=== PATIENT | female | born 1990 | race African-American/Black ===

== ENCOUNTER 2016-05-27 17:40 | Emergency (ER) | payer OTHER ==
[~2016-05-27] VITALS: Ht 165.1 cm; Wt 63.5 kg
[~2016-05-27 17:40] MED LIST: ALBUTEROL SULF8.5 GM INH; ALBUTEROL2.5 MG/3 M HHN; ALBUTEROL2.5 MG/3 M INH; BACTRIM DS TAB1 EAC1 ORAL; CIPROFLOXACIN500 M2 ORAL; IBUPROFEN600 MG ORAL; KEFLEX500 MG ORAL; LEVAQUIN500 MG ORAL; NAPROXEN375 M2 ORAL; NORCO 5-325 TA1 EACH ORAL; PHENAZOPYRIDIN200 MG ORAL; PHENERGAN6.25 MG/5 ORAL; ZOFRAN4 MG ORAL
[2016-05-27 18:05] VITALS: BP 107/69
[2016-05-27] MEDS ORDERED: ALBUTEROL SULF8.5 GM INH (18:10)
[2016-05-27] MEDS ORDERED: AZITHROMYCIN250 MG ORAL (18:10)
[2016-05-27 18:32] VITALS: BP 107/69
--- NOTE | 2016-05-29 02:02 | Emergency Room Report ---
History of Present Illness General Chief Complaint: Upper Respiratory Illness Source: Patient Present Illness HPI Patient's as with complaint of sore throat and cough over the past 3 days She reports that her son was sick initially and she thinks she caught the same cold She has a history of asthma and felt that there was some mild wheezing Sore throat is 3/10 pain sharp Denies any posterior neck pain denies any chest pain Denies any back or flank pain Denies any recent travel Allergies: Coded Allergies: No Known Allergies (Unverified , 02/17/14) Patient History Past Medical History: see triage record Pertinent Family History: none Last Menstrual Period: Current Now: No Reviewed Nursing Documentation: PMH: Agreed, PSxH: Agreed Nursing Documentation-PMH Hx Asthma: Yes Review of Systems All Other Systems: negative except mentioned in HPI Physical Exam Vital Signs Date Time Temp Pulse Resp B/P Pulse Ox O2 Delivery O2 Flow Rate FiO2 05/27/16 17:55 98.8 82 16 107/69 99 Room Air Sp02 EP Interpretation: reviewed, normal General Appearance: well appearing, no apparent distress Head: normocephalic, atraumatic Eyes: bilateral eye EOMI, bilateral eye PERRL ENT: hearing grossly normal, normal pharynx, TMs + canals normal, uvula midline Neck: full range of motion, supple, no meningismus, no bony tend Respiratory: lungs clear, normal breath sounds, no rhonchi, no respiratory distress, no retraction, no accessory muscle use Cardiovascular #1: normal peripheral pulses, regular rate, rhythm, no edema, no gallop, no JVD, no murmur Gastrointestinal: normal bowel sounds, non tender, soft, no mass, no organomegaly, non-distended, no guarding, no hernia, no pulsatile mass, no rebound Genitourinary: no CVA tenderness Musculoskeletal: normal inspection Neurologic: oriented x3, responsive, streetcar dispatcher 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-XII nml as tested, motor strength/ tone normal, sensory intact Psychiatric: mood/affect normal Skin: normal color, no rash, warm/dry, palpation normal Lymphatic: normal inspection, no adenopathy Medical Decision Making Diagnostic Impression: Primary Impression: bronchitis ER Course Given the patient's history and exam multiple differentials are considered It appears the patient has findings in line with a viral bronchitis the patient was provided with an inhaler and stable for close outpatient followup Last Vital Signs Date Time Temp Pulse Resp B/P Pulse Ox O2 Delivery O2 Flow Rate FiO2 05/27/16 18:32 98.8 16 107/69 99 Room Air 05/27/16 18:05 82 Status: unchanged Disposition: HOME, SELF-CARE Condition: Stable Scripts Albuterol Sulfate* (ALBUTEROL SULFATE MDI*) 8.5 Gm Hfa.aer.ad 2 PUFF INH Q6H, #1 EA 0 Refills Prov: ANA MARIA WEIR D.O. 05/27/16 Ref[facility] ([facility]P) Patient Instructions: Acute Bronchitis, [id number]-[id number] Additional Instructions: Patient is provided with the discharge instructions notified to follow up with primary doctor in the next 2-3 days otherwise return to the er with any worsening symptoms. Please note that this report is being documented using [employer] technology. This can lead to erroneous entry secondary to incorrect interpretation by the dictating instrument. ANA MARIA WEIR D.O. May 29, 2016 02:02
== END 2016-05-27 18:32 | disposition home or self-care (01) ==
LOC: EMR 18:00
DX: J40 Bronchitis, not specified as acute or chronic (principal); J45.909 Unspecified asthma, uncomplicated
CPT/HCPCS: 99283

== ENCOUNTER 2016-09-08 11:46 | Emergency (ER) | payer OTHER ==
[~2016-09-08] VITALS: Ht 165.1 cm; Wt 59.0 kg
[~2016-09-08 11:46] MED LIST changes: +AZITHROMYCIN250 MG ORAL
[2016-09-08 12:02] VITALS: BP 110/73
[2016-09-08] MEDS ORDERED: Morphine Sulfate 4mg/ml Inj IVP ONE (12:15)
[2016-09-08] MEDS ORDERED: Morphine Sulfate 4mg/ml Inj IM ONE (12:15)
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
[2016-09-08] MEDS ORDERED: Ondansetron ODT 8mg tab ORAL ONE (12:30)
[2016-09-08] MEDS ORDERED: Ketorolac 30mg Inj IM ONE (13:00)
[2016-09-08] MEDS ORDERED: NAPROXEN500 M2 ORAL (13:29)
[2016-09-08] MEDS ORDERED: ACETAMINOPHEN-1 EAC2 ORAL (13:29)
[2016-09-08 13:40] VITALS: BP 116/71
[2016-09-08 13:50] VITALS: BP 116/71
--- NOTE | 2016-09-10 11:45 | Diagnostic Imaging Report ---
Indication: PAIN Technique: 3 views of the right elbow Comparison: none Findings: No acute fractures. No dislocations. No joint effusion. Joint spaces are preserved. Normal mineralization. No radiopaque foreign body. Impression: Negative This agrees with the preliminary interpretation provided by the emergency room physician
--- NOTE | 2016-09-10 11:45 | Diagnostic Imaging Report ---
Clinical Indication:PAIN Technique: 3 views of the right wrist Comparison: None Findings: No acute fractures. No dislocations. Joint spaces are preserved. Impression: Negative This agrees with the preliminary interpretation provided by the emergency room physician
--- NOTE | 2016-09-10 11:45 | Diagnostic Imaging Report ---
Indications: PAIN Technique: Two views of the forearm Comparison: None Findings: No acute fractures or dislocations. No radiopaque foreign body. Normal mineralization. Impression: Negative This agrees with the preliminary interpretation provided by the emergency room physician
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
== END 2016-09-08 13:52 | disposition home or self-care (01) ==
LOC: EMR 12:10
DX: S06.0X9A Concussion with loss of consciousness of unspecified duration, initial encounter (principal); S09.90XA Unspecified injury of head, initial encounter; M25.531 Pain in right wrist; M25.521 Pain in right elbow; S00.83XA Contusion of other part of head, initial encounter; Y04.2XXA Assault by strike against or bumped into by another person, initial encounter; Y92.009 Unspecified place in unspecified non-institutional (private) residence as the place of occurrence of the external cause; J32.2 Chronic ethmoidal sinusitis
CPT/HCPCS: 70450; 73080; 73090; 73110; 96372; 99284; J1885; J2270

== ENCOUNTER 2017-01-20 17:47 | Emergency (ER) | payer OTHER ==
[~2017-01-20] VITALS: Ht 165.1 cm; Wt 65.3 kg
[~2017-01-20 17:47] MED LIST changes: +ACETAMINOPHEN-1 EAC2 ORAL; +NAPROXEN500 M2 ORAL
[2017-01-20 18:25] VITALS: BP 111/64
[2017-01-20] MEDS ORDERED: Methocarbamol 750mg tab ORAL ONE (18:45)
[2017-01-20] MEDS ORDERED: IBUPROFEN600 MG ORAL (19:55)
[2017-01-20] MEDS ORDERED: ROBAXIN-750750 MG PO (19:55)
[2017-01-20 20:00] VITALS: BP 111/64
--- NOTE | 2017-01-21 10:44 | Diagnostic Imaging Report ---
Indication: PAIN Technique: 3 views of the right knee Comparison: None Findings:No suprapatellar effusion, fracture, dislocation, or joint space narrowing demonstrated Impression:Negative
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
== END 2017-01-20 20:00 | disposition home or self-care (01) ==
LOC: EMR 18:39
DX: M25.461 Effusion, right knee (principal); J45.909 Unspecified asthma, uncomplicated; T14.8XXA Other injury of unspecified body region, initial encounter; V43.52XA Car driver injured in collision with other type car in traffic accident, initial encounter; Y92.410 Unspecified street and highway as the place of occurrence of the external cause
CPT/HCPCS: 99284

== ENCOUNTER 2017-11-12 11:03 | Emergency (ER) | payer OTHER ==
[~2017-11-12] VITALS: Ht 165.1 cm; Wt 65.3 kg
[~2017-11-12 11:03] MED LIST changes: +ROBAXIN-750750 MG PO
--- NOTE | 2017-11-12 13:16 | Emergency Room Report ---
History of Present Illness General Chief Complaint: General Complaint Source: Patient Present Illness HPI 27-year-old female presents to the emergency department complaining of 2 weeks of decreased appetite with onset of bloating in the lower abdomen 3 days. Patient denies nausea or vomiting she denies fevers or chills she reports she took an at-home test which was negative she states her last period was the first of this month. She has had one previous . She reports normal bowel movements she does report increased urinary frequency. Patient does also reports some low right-sided back aches that she rates as 4 out of 10 in severity. She reports that her lower abdomen area feels slightly distended. Allergies: Coded Allergies: No Known Allergies (Unverified , 02/17/14) Patient History Past Medical History: see triage record Past Surgical History: none Pertinent Family History: none Last Menstrual Period: 10/29/2017 Now: No Immunizations: UTD Reviewed Nursing Documentation: PMH: Agreed; PSxH: Agreed Nursing Documentation-PMH Past Medical History: No History, Except For Hx Asthma: Yes Review of Systems All Other Systems: negative except mentioned in HPI Physical Exam Vital Signs Date Time Temp Pulse Resp B/P (MAP) Pulse Ox O2 Delivery O2 Flow Rate FiO2 11/12/17 11:08 98.3 93 16 116/83 98 Room Air 98.2 Sp02 EP Interpretation: reviewed, normal General Appearance: no apparent distress, alert, GCS 15, non-toxic Head: normocephalic, atraumatic Eyes: bilateral eye normal inspection, bilateral eye PERRL ENT: hearing grossly normal, normal voice Neck: full range of motion Respiratory: lungs clear, normal breath sounds, speaking full sentences Cardiovascular #1: regular rate, rhythm Gastrointestinal: normal bowel sounds, non tender, soft, non-distended, no guarding Rectal: deferred Genitourinary: normal inspection, no CVA tenderness Musculoskeletal: back normal, gait/station normal, normal range of motion, non- tender Neurologic: alert, oriented x3, responsive, motor strength/tone normal, sensory intact, normal gait, speech normal, grossly normal Psychiatric: judgement/insight normal Skin: normal color, no rash, warm/dry, well hydrated Medical Decision Making PA Attestation Dr. Ramirez is my supervising Physician whom patient management has been discussed with. Diagnostic Impression: Primary Impression: UTI (urinary tract infection) Qualified Codes: N30.01 - Acute cystitis with hematuria ER Course 27-year-old female presents to the emergency department complaining of 2 weeks of decreased appetite with onset of bloating in the lower abdomen 3 days. Patient denies nausea or vomiting she denies fevers or chills she reports she took an at-home test which was negative she states her last period was the first of this month. She has had one previous . She reports normal bowel movements she does report increased urinary frequency. Patient does also reports some low right-sided back aches that she rates as 4 out of 10 in severity. She reports that her lower abdomen area feels slightly distended. Ddx considered but are not limited to UTi , Pyelo, STI, Stone, Cystitis, , Vital signs: are WNL, pt. is afebrile H&PE are most consistent with UTI ORDERS: - UA labs are attached : Positive for UTI -Hcg: Negative ED INTERVENTIONS: -Pyridium PO DISCHARGE: At this time pt. is stable for d/c to home. Will provide printed patient care instructions, and any necessary prescriptions. Care plan and follow up instructions have been discussed with the patient prior to discharge. Labs Test 11/12/17 12:25 Urine Color Pale yellow Urine Appearance Turbid Urine pH 7 (4.5-8.0) Urine Specific Noel 1.005 (1.005-1.035) Urine Protein 3+ (NEGATIVE) Urine Glucose (UA) Negative (NEGATIVE) Urine Ketones 3+ (NEGATIVE) Urine Occult Blood 5+ (NEGATIVE) Urine Nitrite Negative (NEGATIVE) Urine Bilirubin Negative (NEGATIVE) Urine Urobilinogen Normal MG/DL (0.0-1.0) Urine Leukocyte Esterase 3+ (NEGATIVE) Urine RBC 60-80 /HPF (0 - 2) Urine WBC Tntc /HPF (0 - 2) Urine Squamous Epithelial Cells Few /LPF (NONE/OCC) Urine Bacteria Moderate /HPF (NONE) Urine HCG, Qualitative Negative (NEGATIVE) Last Vital Signs Date Time Temp Pulse Resp B/P (MAP) Pulse Ox O2 Delivery O2 Flow Rate FiO2 11/12/17 11:08 98.3 93 16 116/83 98 Room Air 98.2 Disposition: HOME, SELF-CARE Condition: Stable Scripts Phenazopyridine Hcl* (PYRIDIUM*) 200 Mg Tablet 200 MG ORAL THREE TIMES A DAY for 3 Days, #9 TAB 0 Refills Prov: Phyllis Tony 11/12/17 Trimethoprim/Sulfamethoxazole 160/800* (BACTRIM DS TABLET*) 1 Each Tablet 1 TAB ORAL TWICE A DAY for 7 Days, #14 TAB Prov: Phyllis Tony 11/12/17 Referrals: [facility] (PCP) Patient Instructions: Urinary Tract Infection Additional Instructions: Take medications as directed. Follow up with a Primary Care Provider in 3-5 days, even if your symptoms have resolved. --Please review list of primary care clinics, if you do not already have a primary care provider Return sooner to ED if new symptoms occur, or current symptoms become worse. Do not drink alcohol, drive, or operate heavy machinery while taking [ ] as this may cause drowsiness. - Please note that this Emergency Department Report was dictated using [employer] technology software, occasionally this can lead to erroneous entry secondary to interpretation by the dictation equipment. Phyllis Tony Nov 12, 2017 13:16
[2017-11-12 13:19] LABS: APPEARANCE,URINE TURBID; BILIRUBIN, URINE NEGATIVE (NEGATIVE); COLOR,URINE PALE YELLOW; GLUCOSE, URINE (UA) NEGATIVE (NEGATIVE); KETONES,URINE 3+ (NEGATIVE); LEUKOCYTE ESTERASE ,URINE 3+ (NEGATIVE); NITRITE,URINE NEGATIVE (NEGATIVE); PH,URINE 7 (4.5-8.0); PROTEIN,URINE 3+ (NEGATIVE); UROBILINOGEN,URINE NORMAL MG/DL (0.0-1.0)
[2017-11-12 13:35] VITALS: BP 122/78
[2017-11-12] MEDS ORDERED: PHENAZOPYRIDIN200 MG ORAL (13:43)
[2017-11-12] MEDS ORDERED: BACTRIM DS TAB1 EAC1 ORAL (13:43)
[2017-11-12] MEDS ORDERED: Phenazopyridine 200mg tab ORAL ONE (13:45)
== END 2017-11-12 13:35 | disposition home or self-care (01) ==
LOC: EMR 11:57
DX: N30.01 Acute cystitis with hematuria (principal); J45.909 Unspecified asthma, uncomplicated
CPT/HCPCS: 81003; 81025; 87086; 87181; 99283

== ENCOUNTER 2018-02-22 00:50 | Emergency (ER) | payer OTHER ==
[~2018-02-22] VITALS: Ht 165.1 cm; Wt 59.0 kg
[~2018-02-22 00:50] MED LIST changes: +CEPHALEXIN500 MG ORAL; +LIDODERM700 M1 TOPIC; +TYLENOL EXTRA500 MG ORAL
[2018-02-22 01:16] VITALS: BP 124/72
[2018-02-22] MEDS ORDERED: Ipratropium 0.02% Inh Soln 2.5ml UD HHN ONE (01:30)
[2018-02-22] MEDS ORDERED: Albuterol ud Inhalation HHN ONE (01:30)
[2018-02-22 01:32] LABS: APPEARANCE,URINE SLIGHTLY CLOUDY; BILIRUBIN, URINE NEGATIVE (NEGATIVE); COLOR,URINE PALE YELLOW; GLUCOSE, URINE (UA) NEGATIVE (NEGATIVE); KETONES,URINE NEGATIVE (NEGATIVE); LEUKOCYTE ESTERASE ,URINE 1+ (NEGATIVE); NITRITE,URINE NEGATIVE (NEGATIVE); PH,URINE 7 (4.5-8.0); PROTEIN,URINE NEGATIVE (NEGATIVE); UROBILINOGEN,URINE 1 MG/DL (0.0-1.0)
[2018-02-22 02:26] VITALS: BP 121/84
[2018-02-22] MEDS ORDERED: oxyCODONE HCL/Acetaminophen 5/325mg ORAL ONE (02:45)
[2018-02-22 03:10] VITALS: BP 117/81
--- NOTE | 2018-02-22 04:37 | Emergency Room Report ---
History of Present Illness General Chief Complaint: Asthma Source: Patient Present Illness HPI Patient presents with several days of wheezing and productive cough. She has yellow phlegm at this time. In addition she has a headache from the coughing and a sore throat. The throat has been red in color. She's been able to swallow liquids. She's run out of her albuterol inhaler. She has used prednisone in the past. This is not her worst attack. Not . Seen in past with lumbar pain, denies at this time. No dysuria. No NVD, rashes, anxiety, joint pain, calf pain or swelling. Allergies: Coded Allergies: No Known Allergies (Unverified , 02/17/14) Patient History Past Medical History: see triage record Social History: Denies: smoking Social History Narrative off from work Now: No Reviewed Nursing Documentation: PMH: Agreed; PSxH: Agreed Nursing Documentation-PMH Hx Asthma: Yes Review of Systems All Other Systems: negative except mentioned in HPI Physical Exam Vital Signs Date Time Temp Pulse Resp B/P (MAP) Pulse Ox O2 Delivery O2 Flow Rate FiO2 02/22/18 01:09 99.0 92 22 120/80 97 Room Air 02/22/18 01:38 21 Sp02 EP Interpretation: reviewed, normal General Appearance: well appearing, no apparent distress, GCS 15 Head: normocephalic Eyes: bilateral eye normal inspection, bilateral eye PERRL ENT: moist mucus membranes, pharyngeal erythema Neck: supple Respiratory: chest non-tender, wheezing, expiration Cardiovascular #1: regular rate, rhythm Cardiovascular #2: 2+ radial (R) Gastrointestinal: normal inspection, normal bowel sounds, non tender, no mass, non-distended Genitourinary: no CVA tenderness Musculoskeletal: back normal, gait/station normal, normal range of motion Neurologic: alert, oriented x3, grossly normal Psychiatric: mood/affect normal Skin: normal inspection, warm/dry Medical Decision Making Diagnostic Impression: Primary Impression: Asthma exacerbation Qualified Codes: J45.41 - Moderate persistent asthma with (acute) exacerbation Additional Impression: Strep pharyngitis ER Course Patient presents with wheezing and sore throat. DDX; asthma, strep, viral amongst others. Breathing treatments and prednisone indicated. Also will receive analgesia. CXR not indicated (unless not improved). Antibiotics indicated for pharyngitis. After tx, lungs better, but c/o headache. Percocet ordered. Non-focal neuro. Patient improved with treatment. Patient stable for outpatient observation and treatment. Laboratory Tests Test 02/22/18 01:05 Urine Color Pale yellow Urine Appearance Slightly cloudy Urine pH 7 (4.5-8.0) Urine Specific [place] 1.015 (1.005-1.035) Urine Protein Negative (NEGATIVE) Urine Glucose (UA) Negative (NEGATIVE) Urine Ketones Negative (NEGATIVE) Urine Blood Negative (NEGATIVE) Urine Nitrite Negative (NEGATIVE) Urine Bilirubin Negative (NEGATIVE) Urine Urobilinogen 1 MG/DL (0.0-1.0) H Urine Leukocyte Esterase 1+ (NEGATIVE) H Urine RBC 0-2 /HPF (0 - 2) Urine WBC 2-4 /HPF (0 - 2) Urine Squamous Epithelial Cells Moderate /LPF (NONE/OCC) H Urine Bacteria Few /HPF (NONE) Urine HCG, Qualitative Negative (NEGATIVE) Rhythm Strip Diag. Results EP Interpretation: yes Rhythm: NSR, no PVC's, no ectopy Last Vital Signs Date Time Temp Pulse Resp B/P (MAP) Pulse Ox O2 Delivery O2 Flow Rate FiO2 02/22/18 05:00 98.7 63 22 110/49 100 Room Air 02/22/18 01:59 21 Status: improved Disposition: HOME, SELF-CARE Condition: Improved Scripts Albuterol Sulfate* (ALBUTEROL SULFATE MDI*) 8.5 Gm Hfa.aer.ad 2 PUFF INH Q6H, #1 EA 1 Refill Prov: Robert Frazier MD 02/22/18 Guaifenesin/Codeine Phos* (ROBITUSSIN AC*) 118 Ml Liquid 5 ML ORAL Q6H PRN for For Cough, #90 ML 0 Refills Prov: Robert Frazier MD 02/22/18 Amoxicillin/Potassium Clav 500-125 Tablet* (AUGMENTIN 500-125 TABLET*) 1 Each Tablet 1 TAB ORAL THREE TIMES A DAY, #20 TAB Prov: Robert Frazier MD 02/22/18 Referrals: [facility],REFERRING (PCP) Robert Frazier MD Feb 22, 2018 04:37
[2018-02-22] MEDS ORDERED: AUGMENTIN 500-1 EACH ORAL (04:40)
[2018-02-22] MEDS ORDERED: ALBUTEROL SULF8.5 GM INH (04:41)
[2018-02-22] MEDS ORDERED: GUAIFENESIN-CO118 M1 ORAL (04:41)
[2018-02-22 05:00] VITALS: BP 110/49
== END 2018-02-22 05:01 | disposition home or self-care (01) ==
LOC: EMR 01:56
DX: J45.41 Moderate persistent asthma with (acute) exacerbation (principal); J02.0 Streptococcal pharyngitis; B95.5 Unspecified streptococcus as the cause of diseases classified elsewhere
CPT/HCPCS: 81003; 81025; 94640; 94664; 99284; J7512

== ENCOUNTER 2018-04-19 10:08 | Emergency (ER) | payer OTHER ==
[~2018-04-19] VITALS: Ht 165.1 cm; Wt 66.7 kg
[~2018-04-19 10:08] MED LIST changes: +AUGMENTIN 500-1 EACH ORAL; +GUAIFENESIN-CO118 M1 ORAL
--- NOTE | 2018-04-19 10:19 | NUR ---
ED Nurse Note: Pt came into the Er w/ complaints of SOB and frequency upon urination x 4 days. Denies burning upon urination. Pt ran out of inhaler medication yesterday. Complaining of 5/10 headache. Non radiating. A + O x4. Ambulatory. Skin warm to touch. Noted to have a marijuana smell coming form pt.
[2018-04-19 10:20] VITALS: BP 100/64
--- NOTE | 2018-04-19 10:28 | Emergency Room Report ---
History of Present Illness General Chief Complaint: Asthma Source: Patient Present Illness HPI Patient has a history of asthma. Patient presents emergency department today complaining of one week of worsening shortness of breath. Patient has been using albuterol pump but symptoms have not improved. Patient has run out of her inhaler. In addition patient complains of dysuria urinary frequency. Symptoms have also been on for a week with some mild right flank pain. Patient denies any vaginal discharge. Denies any fever chest pain. Denies any leg pain leg swelling. Symptoms noted to be moderate.No other modifying factors. No other associated signs and symptoms. No other complaints were noted. Allergies: Coded Allergies: No Known Allergies (Unverified , 02/17/14) Patient History Past Medical History: asthma Past Surgical History: none Pertinent Family History: none Social History: Denies: smoking, alcohol use, drug use Last Menstrual Period: 2 WEEKS AGO Now: No Reviewed Nursing Documentation: PMH: Agreed; PSxH: Agreed Nursing Documentation-PMH Hx Asthma: Yes Review of Systems All Other Systems: negative except mentioned in HPI Physical Exam Vital Signs Date Time Temp Pulse Resp B/P (MAP) Pulse Ox O2 Delivery O2 Flow Rate FiO2 04/19/18 10:10 98.2 85 22 104/62 99 Room Air 04/19/18 10:20 98 Sp02 EP Interpretation: reviewed, normal General Appearance: normal inspection, well appearing, no apparent distress, alert Head: atraumatic Eyes: bilateral eye normal inspection, bilateral eye PERRL ENT: normal ENT inspection, hearing grossly normal, normal voice Neck: normal inspection, full range of motion, supple, no bony tend Respiratory: no retraction, decreased breath sounds, accessory muscle use, wheezing, expiration Cardiovascular #1: regular rate, rhythm, no edema Gastrointestinal: normal inspection, normal bowel sounds, non tender, soft, no guarding, no hernia Genitourinary: other - Mild right CVA tenderness to percussion Musculoskeletal: normal inspection, back normal, normal range of motion Neurologic: normal inspection, alert, responsive, speech normal Psychiatric: normal inspection, judgement/insight normal, mood/affect normal Skin: normal inspection, normal color, no rash Medical Decision Making Diagnostic Impression: Primary Impression: Asthma Additional Impressions: Asthma attack UTI (urinary tract infection) ER Course Patient presents emergency department today complaining of shortness of breath. Differential diagnoses include acute pneumonia, CHF, acute coronary syndrome, pneumothorax, asthma, COPD flare, just to name a few. Patient's exam is consistent with asthma. Patient was given respiratory treatment with complete resolution of symptoms. Patient was given prednisone. Patient's UA was positive for UTI. Therefore patient was given antibiotics albuterol and prednisone.Patient is advised to follow up with primary doctor in 2-3 days and return the emergency room for any worsening symptoms and as needed. Labs Test 04/19/18 10:27 Urine Color Pale yellow Urine Appearance Slightly cloudy Urine pH 8 (4.5-8.0) Urine Specific [place] 1.010 (1.005-1.035) Urine Protein Negative (NEGATIVE) Urine Glucose (UA) Negative (NEGATIVE) Urine Ketones Negative (NEGATIVE) Urine Blood Negative (NEGATIVE) Urine Nitrite Negative (NEGATIVE) Urine Bilirubin Negative (NEGATIVE) Urine Urobilinogen Normal MG/DL (0.0-1.0) Urine Leukocyte Esterase 1+ (NEGATIVE) Urine RBC 0-2 /HPF (0 - 2) Urine WBC 2-4 /HPF (0 - 2) Urine Squamous Epithelial Cells Many /LPF (NONE/OCC) Urine Bacteria Few /HPF (NONE) Urine HCG, Qualitative Negative (NEGATIVE) Last Vital Signs Date Time Temp Pulse Resp B/P (MAP) Pulse Ox O2 Delivery O2 Flow Rate FiO2 04/19/18 10:20 88 22 Room Air 98 04/19/18 10:20 98.0 100/64 99 Status: improved Disposition: HOME, SELF-CARE Condition: Stable Scripts Trimethoprim/Sulfamethoxazole 160/800* (BACTRIM DS TABLET*) 1 Each Tablet 1 TAB ORAL Q12H, #14 TAB 0 Refills Prov: Chandan Bell MD 04/19/18 Prednisone* (PREDNISONE*) 20 Mg Tablet 40 MG ORAL DAILY, #10 TAB Prov: Chandan Bell MD 04/19/18 Albuterol Sulfate* (ALBUTEROL SULFATE MDI*) 8.5 Gm Hfa.aer.ad 2 PUFF INH Q4H PRN for cough/wheezing, #1 EA 0 Refills Prov: Chandan Bell MD 04/19/18 Chandan Bell MD Apr 19, 2018 10:28
--- NOTE | 2018-04-19 10:29 | NUR ---
ED Nurse Note: RT at the bedside to give breathing tx. Urine has been collected and sent to lab. Awaiting results.
[2018-04-19] MEDS ORDERED: Ipratropium 0.02% Inh Soln 2.5ml UD HHN ONE (10:30)
[2018-04-19] MEDS ORDERED: Albuterol ud Inhalation HHN ONE (10:30)
[2018-04-19 10:55] LABS: APPEARANCE,URINE SLIGHTLY CLOUDY; BILIRUBIN, URINE NEGATIVE (NEGATIVE); COLOR,URINE PALE YELLOW; GLUCOSE, URINE (UA) NEGATIVE (NEGATIVE); KETONES,URINE NEGATIVE (NEGATIVE); LEUKOCYTE ESTERASE ,URINE 1+ (NEGATIVE); NITRITE,URINE NEGATIVE (NEGATIVE); PH,URINE 8 (4.5-8.0); PROTEIN,URINE NEGATIVE (NEGATIVE); UROBILINOGEN,URINE NORMAL MG/DL (0.0-1.0)
[2018-04-19] MEDS ORDERED: BACTRIM DS TAB1 EAC1 ORAL (11:22)
[2018-04-19] MEDS ORDERED: PREDNISONE20 MG ORAL (11:22)
[2018-04-19] MEDS ORDERED: ALBUTEROL SULF8.5 GM INH (11:22)
[2018-04-19 11:29] VITALS: BP 125/75
--- NOTE | 2018-04-19 11:30 | NUR ---
ED Nurse Note: Discharge instructions given to pt. Answered all questions. Verbalized understanding. No acute distress noted. ID band removed. Left ER w/ all belongings and w/ a steady gait.
== END 2018-04-19 11:30 | disposition home or self-care (01) ==
LOC: EMR 10:30
DX: J45.909 Unspecified asthma, uncomplicated (principal); N39.0 Urinary tract infection, site not specified
CPT/HCPCS: 81003; 81025; 94640; 94664; 99284; J7512

== ENCOUNTER 2018-08-16 18:02 | Emergency (ER) | payer SELFPAY ==
[~2018-08-16] VITALS: Ht 167.6 cm; Wt 63.5 kg
[~2018-08-16 18:02] MED LIST changes: +PREDNISONE20 MG ORAL
--- NOTE | 2018-08-16 18:26 | Emergency Room Report ---
History of Present Illness General Chief Complaint: Dyspnea/Respdistress Source: Patient Present Illness HPI 28-year-old female presents to the emergency department complaining of dry wheezy cough 2 weeks she states that her albuterol inhaler at home is not working. Patient reports chills she denies fever she reports intermittently having some mucus stuck in the throat. Patient reports nasal congestion, rhinorrhea and 5 out of 10 in severity sore throat. Patient states she is up-to -date with vaccinations she denies recent travel or ill contacts. Patient reports history of asthma. Denies CP, SOB, or palpitations. Allergies: Coded Allergies: No Known Allergies (Unverified , 02/17/14) Patient History Past Medical History: see triage record Past Surgical History: none Pertinent Family History: none Last Menstrual Period: last month Now: No Reviewed Nursing Documentation: PMH: Agreed; PSxH: Agreed Nursing Documentation-PMH Hx Asthma: Yes Review of Systems All Other Systems: negative except mentioned in HPI Physical Exam Vital Signs Date Time Temp Pulse Resp B/P (MAP) Pulse Ox O2 Delivery O2 Flow Rate FiO2 08/16/18 18:18 98.1 78 20 97 Room Air Sp02 EP Interpretation: reviewed, normal General Appearance: no apparent distress, alert, GCS 15, non-toxic Head: normocephalic, atraumatic Eyes: bilateral eye normal inspection, bilateral eye PERRL ENT: hearing grossly normal, normal voice, uvula midline, moist mucus membranes , nasal congestion, pharyngeal erythema, other - post nasal drainage noted. Neck: full range of motion Respiratory: chest non-tender, lungs clear, no respiratory distress, no accessory muscle use, no wheezing, speaking full sentences, wheezing Cardiovascular #1: regular rate, rhythm Musculoskeletal: back normal, gait/station normal, normal range of motion, non- tender Neurologic: alert, oriented x3, responsive, motor strength/tone normal, sensory intact, speech normal, grossly normal Psychiatric: judgement/insight normal Skin: normal color, no rash, warm/dry, well hydrated Lymphatic: no adenopathy Medical Decision Making PA Attestation Dr. Gallardo is my supervising Physician whom patient management has been discussed with. Diagnostic Impression: Primary Impression: Bronchitis Additional Impression: Post-nasal drainage ER Course 28-year-old female presents to the emergency department complaining of dry wheezy cough 2 weeks she states that her albuterol inhaler at home is not working. Patient reports chills she denies fever she reports intermittently having some mucus stuck in the throat. Patient reports nasal congestion, rhinorrhea and 5 out of 10 in severity sore throat. Patient states she is up-to -date with vaccinations she denies recent travel or ill contacts. Patient reports history of asthma. Denies CP, SOB, or palpitations. Ddx considered but are not limited to URI, pneumonia, PE, strep pharyngitis, meningitis, Vital signs: Pt.is afebrile VS are WNL H&PE are most consistent with bronchitis ORDERS: none required at this time, the diagnosis is clinical ED INTERVENTIONS: -albuterol nebs x 2 -Prednisone 60 mg -I do not identify an emergent condition at this time. With current presentation , pt. is stable for close outpatient follow up and conservative treatment. D/ w pt. to return promptly to ED with worsening or new symptoms.- Pt. verbalizes' understanding and agreement with proposed treatment plan.proposed treatment plan. DISCHARGE: At this time pt. is stable for d/c to home. Will provide printed patient care instructions, and any necessary prescriptions. Care plan and follow up instructions have been discussed with the patient prior to discharge. Last Vital Signs Date Time Temp Pulse Resp B/P (MAP) Pulse Ox O2 Delivery O2 Flow Rate FiO2 08/16/18 18:18 98.1 78 20 97 Room Air Status: improved Disposition: HOME, SELF-CARE Condition: Stable Scripts Codeine/Promethazine Hcl* (PROMETHAZINE-CODEINE SYRUP*) 118 Ml Syrup 5 ML ORAL Q6H PRN for For Cough, #120 ML 0 Refills Prov: Phyllis Tony 08/16/18 Albuterol Sulfate* (ALBUTEROL SULFATE MDI*) 8.5 Gm Hfa.aer.ad 2 PUFF INH Q4H, #1 INH 0 Refills Prov: Phyllis Tony 08/16/18 Prednisone* (PREDNISONE*) 20 Mg Tablet 40 MG ORAL DAILY for 5 Days, #10 TAB Prov: Phyllis Tony 08/16/18 Departure Forms: Return to Work Return to Work Date: August 19, 2018 Work Restrictions: None Return to Full Activity: August 19, 2018 Patient Instructions: Acute Bronchitis, [id number] Additional Instructions: Take medications as directed. Follow up with a Primary Care Provider in 3-5 days, even if your symptoms have resolved. --Please review list of primary care clinics, if you do not already have a primary care provider Return sooner to ED if new symptoms occur, or current symptoms become worse. Do not drink alcohol, drive, or operate heavy machinery while taking Cough Syrup as this may cause drowsiness. - Please note that this Emergency Department Report was dictated using [employer] machine operator technology software, occasionally this can lead to erroneous entry secondary to interpretation by the dictation equipment. Phyllis Tony August 16, 2018 18:26
[2018-08-16 18:28] VITALS: BP 106/66
--- NOTE | 2018-08-16 18:30 | NUR ---
ED Nurse Note: Patient walked in to ER c/o SOB. pt is aao x4 and ambulatory. skin clean and intact. pt coughing occasionally and c/o sore throat 5/10.
[2018-08-16] MEDS ORDERED: Albuterol ud Inhalation HHN ONE ×2 (18:45→19:30)
[2018-08-16] MEDS ORDERED: PROMETHAZINE-C118 M1 ORAL (18:46)
[2018-08-16] MEDS ORDERED: PREDNISONE20 MG ORAL (18:46)
[2018-08-16] MEDS ORDERED: ALBUTEROL SULF8.5 GM INH (18:46)
--- NOTE | 2018-08-16 19:04 | NUR ---
HAND-OFF: Report given to NELSON Rowe.
[2018-08-16 19:45] VITALS: BP 110/64
--- NOTE | 2018-08-16 19:45 | NUR ---
ER Nurse Note: All orders completed per ERMD orders. Pt seen, treated, medically cleared for discharge by ERMD. Discharge instructions and prescriptions given with repeat verbazliaion by pt. Instructed pt to follow up with primary care provider within one week. Pt a&ox4, VSS, no signs of distress; denies shortness of breath. ID band removed. Pt left with all belongings with steady gait via own transportation.
== END 2018-08-16 19:45 | disposition home or self-care (01) ==
LOC: EMR 18:44
DX: J20.9 Acute bronchitis, unspecified (principal); R09.82 Postnasal drip
CPT/HCPCS: 94640; 99284; J7512

== ENCOUNTER 2019-01-03 20:13 | Emergency (ER) | payer SELFPAY ==
[~2019-01-03] VITALS: Ht 167.6 cm; Wt 63.5 kg
[~2019-01-03 20:13] MED LIST changes: +PROMETHAZINE-C118 M1 ORAL
[2019-01-03] MEDS ORDERED: IBUPROFEN600 MG ORAL (21:05)
[2019-01-03] MEDS ORDERED: PREDNISONE20 MG ORAL (21:05)
--- NOTE | 2019-01-03 21:05 | Emergency Room Report ---
History of Present Illness General Chief Complaint: Asthma Source: Patient Present Illness HPI Is a 28-year-old female with a history of asthma. She presents with chief complaint of shortness of breath and wheezing. Onset for last couple days. Coughing is productive of sputum. Has chest tightness from coughing. No fever chills but no nausea no vomiting. Similar symptom in the past. Last asthma attack that required a hospital visit was few months ago. No intubation. Pain is 7 out of 10. Worse with inspiration. Worse with coughing. Allergies: Coded Allergies: No Known Allergies (Unverified , 02/17/14) Patient History Past Medical History: see triage record, old chart reviewed, asthma Past Surgical History: none Pertinent Family History: none Social History: Denies: smoking Last Menstrual Period: 11/2018 Now: No Immunizations: other Reviewed Nursing Documentation: PMH: Agreed; PSxH: Agreed Nursing Documentation-PMH Hx Asthma: Yes Review of Systems Eye: Denies: eye pain, blurred vision ENT: Denies: ear pain, nose congestion, throat swelling Respiratory: Reports: cough, shortness of breath, wheezing Cardiovascular: Reports: chest pain; Denies: palpitations Gastrointestinal: Denies: abdominal pain, diarrhea, nausea, vomiting Musculoskeletal: Denies: back pain, joint pain Skin: Denies: rash Neurological: Denies: headache, numbness Endocrine: Denies: increased thirst, increased urine Hematologic/Lymphatic: Denies: easy bruising All Other Systems: negative except mentioned in HPI Physical Exam Vital Signs Date Time Temp Pulse Resp B/P (MAP) Pulse Ox O2 Delivery O2 Flow Rate FiO2 01/03/19 20:42 98.2 60 16 117/65 (82) 97 Room Air Vitals normal Sp02 EP Interpretation: reviewed, normal General Appearance: well appearing, no apparent distress, alert Head: normocephalic, atraumatic Eyes: bilateral eye PERRL, bilateral eye EOMI ENT: hearing grossly normal, normal pharynx Neck: full range of motion, supple, no meningismus Respiratory: chest non-tender, wheezing - Slight Cardiovascular #1: regular rate, rhythm, no murmur Gastrointestinal: normal bowel sounds, non tender, no mass, no organomegaly, no bruit, non-distended Musculoskeletal: back normal, gait/station normal, normal range of motion Psychiatric: mood/affect normal Medical Decision Making Diagnostic Impression: Primary Impression: Asthma attack Qualified Codes: J45.21 - Mild intermittent asthma with (acute) exacerbation ER Course This patient presents with asthma exacerbation. Most likely secondary to viral illness. No evidence of ACS, PE, dissection or respiratory distress. Will discharge home. Last Vital Signs Date Time Temp Pulse Resp B/P (MAP) Pulse Ox O2 Delivery O2 Flow Rate FiO2 01/03/19 20:42 98.2 60 16 117/65 (82) 97 Room Air Status: improved Disposition: HOME, SELF-CARE Condition: Stable Scripts Prednisone* (PREDNISONE*) 20 Mg Tablet 40 MG ORAL DAILY, #8 TAB Prov: Boni Rankin MD 01/03/19 Ibuprofen* (MOTRIN*) 600 Mg Tablet 600 MG ORAL THREE TIMES A DAY, #30 TAB 0 Refills Prov: Boni Rankin MD 01/03/19 Patient Instructions: Asthma, Adult Additional Instructions: Follow-up with your doctor in 7 days for recheck. Return if symptoms worsen. Boni Rankin MD Jan 03, 2019 21:05
[2019-01-03 21:15] VITALS: BP 117/65
[2019-01-03] MEDS ORDERED: Albuterol/Ipratropium 3ml neb HHN ONE (21:15)
--- NOTE | 2019-01-03 21:20 | NUR ---
ER DISCHARGE NOTE: Patient is cleared to be discharged per ERMD, pt is aox4, on room air, with stable vital signs. pt was given dc instructions, pt was able to verbalize understanding, pt id band removed without complications. pt is able to ambulate with steady gait. pt took all belongings.
== END 2019-01-03 21:20 | disposition home or self-care (01) ==
LOC: EMR 20:59
DX: J45.21 Mild intermittent asthma with (acute) exacerbation (principal)
CPT/HCPCS: 94640; 94664; 99284; J7512; J7620

== ENCOUNTER 2019-03-21 23:52 | Emergency (ER) | payer SELFPAY ==
[~2019-03-21] VITALS: Ht 167.6 cm; Wt 70.3 kg
[2019-03-22 00:05] VITALS: BP 124/62
--- NOTE | 2019-03-22 00:05 | NUR ---
ED Nurse Note: Pt walked into ED from home c/o cough, congestion. She also reports generalized body aches. Pt is aaox4, breathing is normal and unlabored. No cardiac distress noted. Will continue to monitor. Pt has hx of asthma, did not use inhaler at home prior to ed arrival.
[2019-03-22] MEDS ORDERED: Albuterol ud Inhalation HHN ONE ×2 (00:15→01:15)
[2019-03-22] MEDS ORDERED: Ipratropium 0.02% Inh Soln 2.5ml UD HHN ONE (00:15)
[2019-03-22] MEDS ORDERED: BREO ELLIPTA 11 EACH IH (00:17)
[2019-03-22] MEDS ORDERED: ALBUTEROL SULF8.5 GM INH (00:17)
[2019-03-22] MEDS ORDERED: PREDNISONE20 MG ORAL (00:17)
--- NOTE | 2019-03-22 00:18 | Emergency Room Report ---
History of Present Illness General Chief Complaint: Asthma Source: Patient Present Illness HPI Is a 29-year-old female with a history of asthma. She has frequent attack. Right now her only last for about a month. She presents with chief complaint of asthma exacerbation. Onset for last 2 days. Has cough and congestion. Also with runny nose and joint pain. No fever chills but no nausea no vomiting. No fever or chills. Similar symptom in the past. Coughing is nonproductive nature. Worse with exertion. Worse with inspiration. Worse with lying flat. Better with sitting up. She is out of her inhaler for the last 2 days. Allergies: Coded Allergies: No Known Allergies (Unverified , 02/17/14) Patient History Past Medical History: see triage record, old chart reviewed, asthma Past Surgical History: none Pertinent Family History: none Social History: Denies: smoking Last Menstrual Period: 02/28/2019 Now: No Immunizations: other Reviewed Nursing Documentation: PMH: Agreed; PSxH: Agreed Nursing Documentation-PM Past Medical History: No History, Except For Hx Asthma: Yes Review of Systems Eye: Denies: eye pain, blurred vision ENT: Reports: nose congestion; Denies: ear pain, throat swelling Respiratory: Reports: cough, shortness of breath Cardiovascular: Denies: chest pain, palpitations Gastrointestinal: Denies: abdominal pain, diarrhea, nausea, vomiting Musculoskeletal: Denies: back pain, joint pain Skin: Denies: rash Neurological: Denies: headache, numbness Endocrine: Denies: increased thirst, increased urine Hematologic/Lymphatic: Denies: easy bruising All Other Systems: negative except mentioned in HPI Physical Exam Vital Signs Date Time Temp Pulse Resp B/P (MAP) Pulse Ox O2 Delivery O2 Flow Rate FiO2 03/21/19 23:59 97.7 67 14 124/62 (82) 97 Room Air Vitals normal Sp02 EP Interpretation: reviewed, normal General Appearance: well appearing, no apparent distress, alert Head: normocephalic, atraumatic Eyes: bilateral eye PERRL, bilateral eye EOMI ENT: hearing grossly normal, normal pharynx Neck: full range of motion, supple, no meningismus Respiratory: chest non-tender, decreased breath sounds, wheezing Cardiovascular #1: regular rate, rhythm, no murmur Gastrointestinal: normal bowel sounds, non tender, no mass, no organomegaly, no bruit, non-distended Musculoskeletal: back normal, normal range of motion, gait/station normal Psychiatric: mood/affect normal Medical Decision Making Diagnostic Impression: Primary Impression: Asthma exacerbation Qualified Codes: J45.21 - Mild intermittent asthma with (acute) exacerbation ER Course She with a viral illness with asthma exacerbation. No evidence of ACS, PE, dissection to name a few. Will discharge home. Last Vital Signs Date Time Temp Pulse Resp B/P (MAP) Pulse Ox O2 Delivery O2 Flow Rate FiO2 03/21/19 23:59 97.7 67 14 124/62 (82) 97 Room Air Status: improved Disposition: HOME, SELF-CARE Condition: Stable Scripts Fluticasone/Vilanterol (Breo Ellipta 100-25 Mcg INH) 1 Each Blst.w.dev 1 EACH IH DAILY, #1 EACH Prov: Boni Rankin MD 03/22/19 Prednisone* (PREDNISONE*) 20 Mg Tablet 40 MG ORAL DAILY, #8 TAB Prov: Boni Rankin MD 03/22/19 Albuterol Sulfate* (ALBUTEROL SULFATE MDI*) 8.5 Gm Hfa.aer.ad 2 PUFF INH Q4H PRN for cough/wheezing, #1 EA 0 Refills Prov: Boni Rankin MD 03/22/19 Patient Instructions: Asthma, Adult Additional Instructions: Follow up your doctor in 7 days. Return if symptoms worsen. Boni Rankin MD Mar 22, 2019 00:18
[2019-03-22 01:55] VITALS: BP 120/76
--- NOTE | 2019-03-22 01:55 | NUR ---
ER DISCHARGE NOTE: Patient is cleared to be discharged per ERMD, pt is aox4, on room air, with stable vital signs. pt was given dc and prescription instructions, pt was able to verbalize understanding, pt id band removed. pt is able to ambulate with steady gait. pt took all belongings.
== END 2019-03-22 01:55 | disposition home or self-care (01) ==
LOC: EMR 03-22 00:16
DX: J45.901 Unspecified asthma with (acute) exacerbation (principal)
CPT/HCPCS: 94640; 94664; 99284; J7512

== ENCOUNTER 2019-05-06 23:17 | Emergency (ER) | payer BC ==
[~2019-05-06] VITALS: Ht 165.1 cm; Wt 70.3 kg
[~2019-05-06 23:17] MED LIST changes: +BREO ELLIPTA 11 EACH IH
--- NOTE | 2019-05-06 23:27 | NUR ---
ED Nurse Note: pt presents to ED c/o flu-like symptoms for 3 days. pt states that she has an 8/10 throbbing [place] as well as body aches and a sore throat. pt states that she feels like there is a ball in her throat and it is difficult for her to swallow. pt has not taken anything [employer]. denies fevers but does mention chills last PM
[2019-05-06 23:29] VITALS: BP 112/66
[2019-05-06 23:58] LABS: APPEARANCE,URINE SLIGHTLY CLOUDY; BILIRUBIN, URINE NEGATIVE (NEGATIVE); GLUCOSE, URINE (UA) NEGATIVE (NEGATIVE); KETONES,URINE 3+ (NEGATIVE); NITRITE,URINE NEGATIVE (NEGATIVE); PH,URINE 5 (4.5-8.0); PROTEIN,URINE 2+ (NEGATIVE); UROBILINOGEN,URINE 4 MG/DL (0.0-1.0)
--- NOTE | 2019-05-07 00:10 | Emergency Room Report ---
History of Present Illness General Chief Complaint: Flu Like Symptoms Source: Patient Present Illness HPI Patient presents with 3 days of right upper respiratory symptoms. She has a sore throat, some congestion and mild cough. She also has fullness in her ears. There is no nausea, vomiting or diarrhea. She denies dysuria. There are no rashes. She has had muscle aches and mild headache. She is not taking any medication. The cough she has is nonproductive. She does not hear herself wheezing. Her last menstruation was April 05. She is uncertain whether she is at this time. Allergies: Coded Allergies: No Known Allergies (Unverified , 02/17/14) Patient History Past Medical History: see triage record Social History: Denies: smoking Social History Narrative Working Last Menstrual Period: 04/05/2019 : 2 Para: 1 Reviewed Nursing Documentation: PMH: Agreed; PSxH: Agreed Nursing Documentation-PMH Hx Asthma: Yes Physical Exam Vital Signs Date Time Temp Pulse Resp B/P (MAP) Pulse Ox O2 Delivery O2 Flow Rate FiO2 05/06/19 23:20 98.1 77 18 112/66 (81) 97 Room Air Sp02 EP Interpretation: reviewed, normal General Appearance: well appearing, no apparent distress, GCS 15 Head: normocephalic Eyes: bilateral eye normal inspection, bilateral eye PERRL ENT: moist mucus membranes, pharyngeal erythema, other - Left tympanic membrane with erythema and bulging, right is normal Neck: full range of motion, supple Respiratory: lungs clear, normal breath sounds Cardiovascular #1: regular rate, rhythm Gastrointestinal: normal inspection Musculoskeletal: gait/station normal Neurologic: alert, grossly normal Psychiatric: mood/affect normal Skin: no rash, warm/dry Medical Decision Making Diagnostic Impression: Primary Impression: Right otitis media Qualified Codes: H66.001 - Acute suppurative otitis media without spontaneous rupture of ear drum, right ear Additional Impression: Early stage of ER Course Patient presents with respiratory symptoms with exam consistent with otitis media. Antibiotics are indicated. In addition she is uncertain whether she is . Urinalysis and urine test ordered. Patient given Tylenol. Urinalysis with positive Discussed findings with patient. Discussed treatment plan. Patient improved. Patient stable for outpatient observation and treatment. Laboratory Tests Test 05/06/19 23:40 Urine Color Yellow Urine Appearance Slightly cloudy Urine pH 5 (4.5-8.0) Urine Specific [place] 1.025 (1.005-1.035) Urine Protein 2+ (NEGATIVE) H Urine Glucose (UA) Negative (NEGATIVE) Urine Ketones 3+ (NEGATIVE) H Urine Blood 1+ (NEGATIVE) H Urine Nitrite Negative (NEGATIVE) Urine Bilirubin Negative (NEGATIVE) Urine Urobilinogen 4 MG/DL (0.0-1.0) H Urine Leukocyte Esterase 2+ (NEGATIVE) H Urine RBC 0-2 /HPF (0 - 2) Urine WBC 10-15 /HPF (0 - 2) H Urine Squamous Epithelial Cells Many /LPF (NONE/OCC) H Urine Bacteria Many /HPF (NONE) H Urine HCG, Qualitative Positive (NEGATIVE) Last Vital Signs Date Time Temp Pulse Resp B/P (MAP) Pulse Ox O2 Delivery O2 Flow Rate FiO2 05/07/19 00:52 98.1 77 18 112/66 97 Room Air Status: improved Disposition: HOME, SELF-CARE Condition: Improved Scripts Pseudoephedrine Hcl* (SUDAFED*) 60 Mg Tablet 60 MG PO Q6H PRN for congestion, #14 TAB Prov: Robert Frazier MD 05/07/19 Acetaminophen (Tylenol) 325 Mg Tablet 650 MG ORAL Q6H PRN for Prn Pain/Headache/Temp > 101, #20 TAB 0 Refills Prov: Robert Frazier MD 05/07/19 Azithromycin* (ZITHROMAX*) 250 Mg Tablet 250 MG ORAL DAILY, #4 TAB Prov: Robert Frazier MD 05/07/19 Vit Comb.10/Iron/Fa (VITAFOL-OB CAPLET) 1 Each Tablet 1 EACH PO DAILY, #30 TAB Prov: Robert Frazier MD 05/07/19 Referrals: NOT CHOSEN [facility]/,REFERRING (PCP) Robert Frazier MD May 07, 2019 00:10
[2019-05-07] MEDS ORDERED: Azithromycin 250mg tab ORAL ONE (00:15)
[2019-05-07 00:19] LABS: COLOR,URINE YELLOW
[2019-05-07 00:20] LABS: LEUKOCYTE ESTERASE ,URINE 2+ (NEGATIVE)
[2019-05-07] MEDS ORDERED: VITAFOL-OB CAP1 EACH PO (00:45)
[2019-05-07] MEDS ORDERED: TYLENOL325 MG ORAL (00:45)
[2019-05-07] MEDS ORDERED: ZITHROMAX250 MG ORAL (00:45)
[2019-05-07] MEDS ORDERED: PSEUDOEPHEDRINE60 MG PO (00:45)
[2019-05-07 00:52] VITALS: BP 112/66
--- NOTE | 2019-05-07 00:52 | NUR ---
ED Nurse Note: Pt cleared by ERMD for discharge. DC instructions/prescription was given and explained to pt and verbalized understanding of teachings. All medical deviecs such as ID band removed. Pt is AAO x4, ambulatory and left with all personal belongings.
== END 2019-05-07 00:52 | disposition home or self-care (01) ==
LOC: EMR 23:42
DX: H66.001 Acute suppurative otitis media without spontaneous rupture of ear drum, right ear (principal); J45.909 Unspecified asthma, uncomplicated; Z33.1 Pregnant state, incidental
CPT/HCPCS: 81003; 81025; 87086; 87181; 99282

== ENCOUNTER 2019-06-27 10:41 | Emergency (ER) | payer BC ==
[~2019-06-27] VITALS: Ht 165.1 cm; Wt 68.9 kg
[~2019-06-27 10:41] MED LIST changes: +PSEUDOEPHEDRINE60 MG PO; +TYLENOL325 MG ORAL; +VITAFOL-OB CAP1 EACH PO; +ZITHROMAX250 MG ORAL
--- NOTE | 2019-06-27 10:56 | NUR ---
ED Nurse Note: Pt walked in from home c/o lower abdominal pain 6/10 radiating to lower back since last night. Pt reports being 12 weeks and is being followed by an OBGYN. She could not get an appointment with her OBGYN. Pt denies n/v/d. Pt reports different vaginal discharge recently. Respirations even and unlabored on room air. Vitals stable as documented.
[2019-06-27 10:59] VITALS: BP 115/68
--- NOTE | 2019-06-27 11:03 | Emergency Room Report ---
History of Present Illness General Chief Complaint: Abdominal Pain Source: Patient Present Illness HPI Disclaimer: Please note that this report is being documented using DRAGON technology. This can lead to erroneous entry secondary to incorrect interpretation by the dictating instrument. HPI: 29-year-old G2, P1 female 12 weeks gestation presents for evaluation of abdominal pain. Symptoms began last night. She notes a dull ache over the suprapubic region and left lower quadrant radiating to the left side of the back. Denies nausea, vomiting, diarrhea, constipation. Reports cloudy urine that is somewhat foul-smelling over the past few days. Denies dysuria or hematuria. Denies vaginal discharge, vaginal bleeding, leakage of fluid. Pain is currently resolved. She was experiencing more last night and resolved this morning with ambulation. PMH: Asthma PSH: Reviewed Allergies: Denies Social Hx: Denies Allergies: Coded Allergies: No Known Allergies (Unverified , 02/17/14) COVID-19 Screening Contact w/high risk pt: No Recent Travel to affected area: No Experienced COVID-19 symptoms?: No Patient History Now: Yes - 12 weeks : 2 Para: 1 Nursing Documentation-PMH Past Medical History: No History, Except For Hx Asthma: Yes Review of Systems All Other Systems: negative except mentioned in HPI Physical Exam Vital Signs Date Time Temp Pulse Resp B/P (MAP) Pulse Ox O2 Delivery O2 Flow Rate FiO2 06/27/19 10:47 98.6 97 19 111/64 (80) 98 General: Awake and alert, no acute distress HEENT: NC/AT. EOMI. Cardiovascular: RRR. S1 and S2 normal. No murmur appreciated Resp: Normal work of breathing. No cough, wheezing or crackles appreciated Abdomen: Gravid abdomen. Soft, nontender, nondistended. Skin: Intact. No abrasions, laceration or rash over the exposed skin MSK: Normal tone and bulk. Moving all extremities. No obvious deformity. Neuro: Awake and alert. Mentating appropriately. Back/Spine: Left-sided CVA tenderness Medical Decision Making Diagnostic Impression: Primary Impression: Abdominal pain during in first trimester Additional Impression: Subchorionic hematoma in first trimester ER Course Is a 29-year-old G2, P1 female 12 weeks gestation presenting for evaluation of lower pelvic pain rating to the left side. Differential includes was not limited to urinary tract infection, pyelonephritis, PID, tubo-ovarian abscess, ectopic , constipation, colitis, diverticulitis, pancreatitis, nephrolithiasis to name a few. Most consistent with her history and physical exam would be a urinary tract infection possibly pyelonephritis. We will obtain labs including hCG, type and screen and obtain a pelvic ultrasound to assess for heart rate and other abnormalities. Laboratory Tests Test 06/27/19 11:00 White Blood Count 9.3 K/UL (4.8-10.8) Red Blood Count 3.45 M/UL (4.20-5.40) L Hemoglobin 11.2 G/DL (12.0-16.0) L Hematocrit 31.3 % (37.0-47.0) L Mean Corpuscular Volume 91 FL (80-99) Mean Corpuscular Hemoglobin 32.4 PG (27.0-31.0) H Mean Corpuscular Hemoglobin Concent 35.7 G/DL (32.0-36.0) Red Cell Distribution Width 10.7 % (11.6-14.8) L Platelet Count 271 K/UL (150-450) Mean Platelet Volume 6.1 FL (6.5-10.1) L Neutrophils (%) (Auto) 71.0 % (45.0-75.0) Lymphocytes (%) (Auto) 19.9 % (20.0-45.0) L Monocytes (%) (Auto) 6.8 % (1.0-10.0) Eosinophils (%) (Auto) 1.4 % (0.0-3.0) Basophils (%) (Auto) 0.9 % (0.0-2.0) Urine Color Pale yellow Urine Appearance Slightly cloudy Urine pH 7 (4.5-8.0) Urine Specific [place] 1.015 (1.005-1.035) Urine Protein Negative (NEGATIVE) Urine Glucose (UA) Negative (NEGATIVE) Urine Ketones Negative (NEGATIVE) Urine Blood Negative (NEGATIVE) Urine Nitrite Negative (NEGATIVE) Urine Bilirubin Negative (NEGATIVE) Urine Urobilinogen Normal MG/DL (0.0-1.0) Urine Leukocyte Esterase 1+ (NEGATIVE) H Urine RBC 0-2 /HPF (0 - 2) Urine WBC 2-4 /HPF (0 - 2) Urine Squamous Epithelial Cells Many /LPF (NONE/OCC) H Urine Amorphous Sediment Moderate /LPF (NONE) H Urine Bacteria Few /HPF (NONE) Sodium Level 137 MMOL/L (136-145) Potassium Level 3.7 MMOL/L (3.5-5.1) Chloride Level 101 MMOL/L (98-107) Carbon Dioxide Level 22 MMOL/L (21-32) Anion Gap 14 mmol/L (5-15) Blood Urea Nitrogen 4 mg/dL (7-18) L Creatinine 0.4 MG/DL (0.55-1.30) L Estimated Glomerular Filtration Rate > 60 mL/min (>60) Glucose Level 99 MG/DL (74-106) Calcium Level 9.0 MG/DL (8.5-10.1) Total Bilirubin 0.4 MG/DL (0.2-1.0) Aspartate Amino Transferase (AST) 11 U/L (15-37) L Alanine Aminotransferase (ALT) 12 U/L (12-78) Alkaline Phosphatase 58 U/L (46-116) Total Protein 7.4 G/DL (6.4-8.2) Albumin 3.4 G/DL (3.4-5.0) Globulin 4.0 g/dL Albumin/Globulin Ratio 0.9 (1.0-2.7) L Lipase 97 U/L (73-393) Human Chorionic Gonadotropin, Quant 63196 mIU/mL (1-6) H Reevaluation Time: 13:53 Last Vital Signs Date Time Temp Pulse Resp B/P (MAP) Pulse Ox O2 Delivery O2 Flow Rate FiO2 06/27/19 10:47 98.6 97 19 111/64 (80) 98 Reevaluation Impression Labs within normal limits. No significant abnormalities. Urinalysis shows 1+ leukocyte esterase and few bacteria, few white cells and multiple epithelial cells concerning for contaminated sample rather than a urinary tract infection. Will send for culture. Ultrasound showed possible small subchorionic hematoma. Patient has an appointment with her SERVICE ASSISTANT in 5 days for reevaluation. Copy of her report was provided in discharge paperwork to give to her SERVICE ASSISTANT. Discussed reasons to return to the emergency department. She understands agrees with treatment plan. Disposition: HOME, SELF-CARE Condition: Stable Referrals: NOT CHOSEN [facility]/,REFERRING (PCP) Hossein Fitzgerald MD Jun 27, 2019 11:03
--- NOTE | 2019-06-27 11:05 | NUR ---
ED Nurse Note: urine and blood sent to lab
[2019-06-27 11:17] LABS: BASOPHILS % (AUTO) 0.9 % (0.0-2.0); EOSINOPHILS % (AUTO) 1.4 % (0.0-3.0); HEMATOCRIT 31.3 % (37.0-47.0); HEMOGLOBIN 11.2 G/DL (12.0-16.0); LYMPHOCYTES % (AUTO) 19.9 % (20.0-45.0); MEAN CORPUSCULAR VOLUME 91 FL (80-99); MONOCYTES % (AUTO) 6.8 % (1.0-10.0); PLATELET COUNT 271 K/UL (150-450); RED BLOOD COUNT 3.45 M/UL (4.20-5.40); RED CELL DISTRIBUTION WIDTH 10.7 % (11.6-14.8); WHITE BLOOD COUNT 9.3 K/UL (4.8-10.8)
[2019-06-27 11:31] LABS: APPEARANCE,URINE SLIGHTLY CLOUDY; BILIRUBIN, URINE NEGATIVE (NEGATIVE); COLOR,URINE PALE YELLOW; GLUCOSE, URINE (UA) NEGATIVE (NEGATIVE); KETONES,URINE NEGATIVE (NEGATIVE); LEUKOCYTE ESTERASE ,URINE 1+ (NEGATIVE); NITRITE,URINE NEGATIVE (NEGATIVE); PH,URINE 7 (4.5-8.0); PROTEIN,URINE NEGATIVE (NEGATIVE); UROBILINOGEN,URINE NORMAL MG/DL (0.0-1.0)
[2019-06-27 11:39] LABS: ANION GAP 14 mmol/L (5-15); BLOOD UREA NITROGEN 4 mg/dL (7-18); CARBON DIOXIDE 22 MMOL/L (21-32); CHLORIDE 101 MMOL/L (98-107); CREATININE 0.4 MG/DL (0.55-1.30); POTASSIUM 3.7 MMOL/L (3.5-5.1); SODIUM 137 MMOL/L (136-145)
[2019-06-27 11:43] LABS: ALANINE AMINOTRANSFERASE 12 U/L (12-78); ALBUMIN 3.4 G/DL (3.4-5.0); ALBUMIN/GLOBULIN RATIO 0.9 (1.0-2.7); ALKALINE PHOSPHATASE 58 U/L (46-116); ASPARTATE AMINO TRANSFERASE 11 U/L (15-37); BILIRUBIN,TOTAL 0.4 MG/DL (0.2-1.0)
--- NOTE | 2019-06-27 12:20 | NUR ---
ED Nurse Note: US @ bedside
--- NOTE | 2019-06-27 13:17 | Diagnostic Imaging Report ---
EXAM: US First Trimester, Transabdominal US , Transvaginal CLINICAL HISTORY: ABD PAIN TECHNIQUE: Real-time transabdominal and transvaginal obstetrical ultrasound of the maternal pelvis and a first trimester with image documentation. Transvaginal imaging was used for better evaluation of the fetus and adnexa. COMPARISON: No relevant prior studies available. FINDINGS: Gestation: Single, live, intrauterine gestation, measuring 12 weeks 0 days. heart rate 162 bpm. [place]-rump length 5.41 cm. Mean sac diameter 5.23 cm. 4.6 mm yolk sac. Placenta/amniotic fluid: 1.7 x 1.0 x 0.8 cm hypoechoic collection possibly representing a subchorionic hematoma. Placenta is posterior. Uterus/cervix: Cervix is closed, with a length of 4.1 cm. Uterus measures 12.9 x 10.0 x 7.6 cm. No myometrial mass. Ovaries: Incidental note of a 2.2 x 1.7 cm complex right ovarian cyst, likely corpus luteum. Right ovary measures 2.7 x 1.8 x 1.7 cm. Left ovary measures 2.5 x 1.7 x 1.4 cm. Normal Doppler blood flow to both ovaries. Free fluid: No free fluid seen. IMPRESSION: 1. Single, live, intrauterine gestation, measuring 12 weeks 0 days. 2. 1.7 x 1.0 x 0.8 cm subchorionic hematoma. 3. Incidental note of a 2.2 x 1.7 cm corpus luteum in the right ovary.
[2019-06-27 13:50] VITALS: BP 118/75
--- NOTE | 2019-06-27 13:50 | NUR ---
ER DISCHARGE NOTE:Patient is cleared to be discharged per ERMD, pt is aox4, on room air, with stable vital signs. pt was given dc and prescription instructions, pt was able to verbalize understanding, pt id band and iv site removed without complications. pt is able to ambulate with steady gait. pt took all belongings.
== END 2019-06-27 13:50 | disposition home or self-care (01) ==
LOC: EMR 10:56
DX: O20.9 Hemorrhage in early pregnancy, unspecified (principal); R10.9 Unspecified abdominal pain; Z3A.12 12 weeks gestation of pregnancy
CPT/HCPCS: 36415; 76801; 76817; 80053; 81003; 83690; 84702; 85025; 86850; 86900; 86901; 99284

== ENCOUNTER 2019-10-06 09:42 | Emergency (ER) | payer BC, MEDICAID, OTHER ==
[~2019-10-06] VITALS: Ht 167.6 cm; Wt 70.3 kg
[2019-10-06 10:07] VITALS: BP 123/71
--- NOTE | 2019-10-06 10:16 | NUR ---
ED Nurse Note:pt. reported being per home test, and c/o abdominal pain for 1 week, no vaginal bleeding, urine sen to labs
[2019-10-06 10:17] LABS: APPEARANCE,URINE CLEAR; BILIRUBIN, URINE NEGATIVE (NEGATIVE); COLOR,URINE PALE YELLOW; GLUCOSE, URINE (UA) NEGATIVE (NEGATIVE); KETONES,URINE NEGATIVE (NEGATIVE); LEUKOCYTE ESTERASE ,URINE 2+ (NEGATIVE); NITRITE,URINE NEGATIVE (NEGATIVE); PH,URINE 7 (4.5-8.0); PROTEIN,URINE NEGATIVE (NEGATIVE); UROBILINOGEN,URINE NORMAL MG/DL (0.0-1.0)
--- NOTE | 2019-10-06 10:31 | NUR ---
ED Nurse Note:blood was sent to labs and IV meds and fluids given
[2019-10-06 10:40] LABS: BASOPHILS % (AUTO) 0.7 % (0.0-2.0); EOSINOPHILS % (AUTO) 2.7 % (0.0-3.0); HEMATOCRIT 36.9 % (37.0-47.0); HEMOGLOBIN 11.8 G/DL (12.0-16.0); LYMPHOCYTES % (AUTO) 27.9 % (20.0-45.0); MEAN CORPUSCULAR VOLUME 98 FL (80-99); MONOCYTES % (AUTO) 7.8 % (1.0-10.0); NEUTROPHILS % (AUTO) 60.9 % (45.0-75.0); PLATELET COUNT 271 K/UL (150-450); RED BLOOD COUNT 3.75 M/UL (4.20-5.40); RED CELL DISTRIBUTION WIDTH 11.3 % (11.6-14.8); WHITE BLOOD COUNT 7.4 K/UL (4.8-10.8)
[2019-10-06 10:48] LABS: ANION GAP 9 mmol/L (5-15); BLOOD UREA NITROGEN 5 mg/dL (7-18); CALCIUM 8.1 MG/DL (8.5-10.1); CARBON DIOXIDE 25 MMOL/L (21-32); CHLORIDE 104 MMOL/L (98-107); CREATININE 0.6 MG/DL (0.55-1.30); POTASSIUM 3.9 MMOL/L (3.5-5.1); SODIUM 138 MMOL/L (136-145)
[2019-10-06 10:53] LABS: ALANINE AMINOTRANSFERASE 13 U/L (12-78); ALBUMIN 3.5 G/DL (3.4-5.0); ALBUMIN/GLOBULIN RATIO 0.9 (1.0-2.7); ALKALINE PHOSPHATASE 63 U/L (46-116); ASPARTATE AMINO TRANSFERASE 11 U/L (15-37); BILIRUBIN,TOTAL 0.3 MG/DL (0.2-1.0)
--- NOTE | 2019-10-06 11:24 | Emergency Room Report ---
History of Present Illness General Chief Complaint: Abdominal Pain Source: Patient Present Illness HPI 29-year-old female presents for evaluation. States that from 1 week she has been feeling bloating sensation. Denies pain but feels discomfort. Dull, 4 out of 10, nonradiating. Denies nausea or vomiting. States that she took 3 tests at home which were positive. Denies any vaginal bleeding or discharge. No other aggravating relieving factors. Denies any other associated symptoms Allergies: Coded Allergies: No Known Allergies (Unverified , 02/17/14) COVID-19 Screening Contact w/high risk pt: No Recent Travel to affected area: No Experienced COVID-19 symptoms?: No COVID-19 Testing performed TRACER CLERK: No Patient History Past Medical History: asthma Past Surgical History: none Pertinent Family History: none Social History: Denies: smoking, alcohol use, drug use Last Menstrual Period: 08/27/19 Now: Yes Immunizations: UTD Reviewed Nursing Documentation: PMH: Agreed; PSxH: Agreed Nursing Documentation-PMH Past Medical History: No History, Except For Hx Asthma: Yes Review of Systems All Other Systems: negative except mentioned in HPI Physical Exam Vital Signs Date Time Temp Pulse Resp B/P (MAP) Pulse Ox O2 Delivery O2 Flow Rate FiO2 10/06/19 09:48 98.4 73 20 123/71 (88) 96 Room Air Sp02 EP Interpretation: reviewed, normal General Appearance: no apparent distress, alert, GCS 15, non-toxic Head: normocephalic, atraumatic Eyes: bilateral eye normal inspection, bilateral eye PERRL ENT: hearing grossly normal, normal pharynx, no angioedema, normal voice Neck: full range of motion, supple/symm/no masses Respiratory: chest non-tender, lungs clear, normal breath sounds, speaking full sentences Cardiovascular #1: regular rate, rhythm, no edema Cardiovascular #2: 2+ carotid (R), 2+ carotid (L), 2+ radial (R), 2+ radial (L) , 2+ dorsalis pedis (R), 2+ dorsalis pedis (L) Gastrointestinal: normal bowel sounds, non tender, soft, non-distended, no guarding, no rebound Rectal: deferred Genitourinary: normal inspection, no CVA tenderness Musculoskeletal: back normal, normal range of motion, gait/station normal, non- tender Neurologic: alert, motor strength/tone normal, oriented x3, sensory intact, responsive, speech normal Psychiatric: judgement/insight normal, memory normal, mood/affect normal, no suicidal/homicidal ideation Reflexes: 3+ bicep (R), 3+ bicep (L), 3+ tricep (R), 3+ tricep (L), 3+ knee (R) , 3+ knee (L) Lymphatic: no adenopathy Medical Decision Making Diagnostic Impression: Primary Impression: Threatened miscarriage ER Course Hospital Course 29 yo F presents with abdominal discomfort. possibly Differential diagnoses include: gastrits, gastroenterits, ectopic , ovarian torsion/cyst, UTI Clinical course Patient placed on stretcher in ED. After initial history and physical I ordered labs, IV fluids and UA/HCG Labs-no leukocytosis, electrolytes okay,HCG +, UA negative OB ultrasound- intrauterine gestiontal sac and yolk sac seen. trace fluid in cul de sac I discussed findings with patient. Will discharge home. 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 Will prescribe vitamins. Safe for discharge with close outpatient follow-up Diagnosis - threatend Stable and discharged to home. 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 Return to ED if symptoms recur or worsen Labs Test 10/06/19 09:55 10/06/19 10:30 Urine Color Pale yellow Urine Appearance Clear Urine pH 7 (4.5-8.0) Urine Specific [place] 1.010 (1.005-1.035) Urine Protein Negative (NEGATIVE) Urine Glucose (UA) Negative (NEGATIVE) Urine Ketones Negative (NEGATIVE) Urine Blood Negative (NEGATIVE) Urine Nitrite Negative (NEGATIVE) Urine Bilirubin Negative (NEGATIVE) Urine Urobilinogen Normal MG/DL (0.0-1.0) Urine Leukocyte Esterase 2+ (NEGATIVE) Urine RBC 0-2 /HPF (0 - 2) Urine WBC 2-4 /HPF (0 - 2) Urine Squamous Epithelial Cells Few /LPF (NONE/OCC) Urine Bacteria Few /HPF (NONE) Urine HCG, Qualitative Positive (NEGATIVE) White Blood Count 7.4 K/UL (4.8-10.8) Red Blood Count 3.75 M/UL (4.20-5.40) Hemoglobin 11.8 G/DL (12.0-16.0) Hematocrit 36.9 % (37.0-47.0) Mean Corpuscular Volume 98 FL (80-99) Mean Corpuscular Hemoglobin 31.5 PG (27.0-31.0) Mean Corpuscular Hemoglobin Concent 32.1 G/DL (32.0-36.0) Red Cell Distribution Width 11.3 % (11.6-14.8) Platelet Count 271 K/UL (150-450) Mean Platelet Volume 7.1 FL (6.5-10.1) Neutrophils (%) (Auto) 60.9 % (45.0-75.0) Lymphocytes (%) (Auto) 27.9 % (20.0-45.0) Monocytes (%) (Auto) 7.8 % (1.0-10.0) Eosinophils (%) (Auto) 2.7 % (0.0-3.0) Basophils (%) (Auto) 0.7 % (0.0-2.0) Sodium Level 138 MMOL/L (136-145) Potassium Level 3.9 MMOL/L (3.5-5.1) Chloride Level 104 MMOL/L (98-107) Carbon Dioxide Level 25 MMOL/L (21-32) Anion Gap 9 mmol/L (5-15) Blood Urea Nitrogen 5 mg/dL (7-18) Creatinine 0.6 MG/DL (0.55-1.30) Estimat Glomerular Filtration Rate > 60 mL/min (>60) Glucose Level 95 MG/DL (74-106) Calcium Level 8.1 MG/DL (8.5-10.1) Total Bilirubin 0.3 MG/DL (0.2-1.0) Aspartate Amino Transf (AST/SGOT) 11 U/L (15-37) Alanine Aminotransferase (ALT/SGPT) 13 U/L (12-78) Alkaline Phosphatase 63 U/L (46-116) Total Protein 7.3 G/DL (6.4-8.2) Albumin 3.5 G/DL (3.4-5.0) Globulin 3.8 g/dL Albumin/Globulin Ratio 0.9 (1.0-2.7) Lipase 99 U/L (73-393) CT/MRI/US Diagnostic Results CT/MRI/US Diagnostic Results : Imaging Test Ordered: OB US Impression intrauterine gestational sac and yolk sac seen trace free fluid in cul-de-sac. Last Vital Signs Date Time Temp Pulse Resp B/P (MAP) Pulse Ox O2 Delivery O2 Flow Rate FiO2 10/06/19 10:07 73 20 Room Air 10/06/19 10:07 98.4 123/71 96 Status: improved Disposition: HOME, SELF-CARE Condition: Stable Scripts Vit #91/Fe Fum/Fa/Dha ( + DHA COMBO PACK) 1 Each Combo..pkg 1 EACH PO DAILY, #30 PACK Prov: Bertrand Nunes MD 10/06/19 Referrals: NON PHYSICIAN (PCP) Bertrand Nunes MD Oct 06, 2019 11:24
--- NOTE | 2019-10-06 11:47 | NUR ---
ED Nurse Note: Patient resting in bed. IV NS running via right AC. IV site remained intacte without redness, swelling or tenderness. Patient using cell phone without facial grimacing or guarding. Bed in lowest position.
[2019-10-06] MEDS ORDERED: PRENATAL + DHA1 EAC1 PO (12:11)
[2019-10-06 12:20] VITALS: BP 123/71
--- NOTE | 2019-10-06 12:20 | NUR ---
ER DISCHARGE NOTE: Patient is cleared to be discharged per ERMD, pt is aox4, on room air, with stable vital signs. pt was given dc and prescription instructions, pt was able to verbalize understanding, pt id band and iv site removed without complications. pt is able to ambulate with steady gait. pt took all belongings.
--- NOTE | 2019-10-06 13:32 | Diagnostic Imaging Report ---
Indication: Pelvic pain, positive test Technique: Transabdominal and transvaginal images of the pelvis. Doppler interrogation of the ovaries Comparison: none Findings: Uterus measures 11.8 cm length by 4.7 cm AP. Within the endometrium, there is a tiny fluid collection which has a decidual reaction. This demonstrates a yolk sac. No pole or heart activity. Mean sac diameter is 8 mm, too small to calculate gestational age. No subchorionic hemorrhage. No myometrial abnormality. Right ovary is normal in size, demonstrates flow on Doppler interrogation. Left ovary cannot be visualized on transabdominal or transvaginal images. Small amount of free fluid is seen in the pelvic cul-de-sac. Impression: Intrauterine gestational sac and yolk sac demonstrated. No heart activity noted,, most likely a very early gestation but viability indeterminate. Recommend correlation with serial beta-hCGs, consider follow-up sonography as indicated Trace cul-de-sac fluid, presumably physiologic Normal right ovary. Nonvisualized left ovary
== END 2019-10-06 12:27 | disposition home or self-care (01) ==
LOC: EMR 10:00
DX: O20.0 Threatened abortion (principal); Z3A.00 Weeks of gestation of pregnancy not specified
CPT/HCPCS: 36415; 76801; 76817; 80053; 81003; 81025; 83690; 85025; 96361; 96374; J7030; S0028; Z7502; 99284